=== PATIENT | male | born 1935 | race Caucasian/White ===

== ENCOUNTER → 2016-08-29 16:15 | Outpatient (CLI) | payer MEDICARE ==
[2014-12-23 15:36] VITALS: BMI 24.4
[~2016-08-29 16:15] MED LIST: ACTOS30 MG PO; CARAFATE1 G/10 ML PO; CEFTIN250 MG PO; CELEXA10 MG PO; CENTRUM COMPLE1 EACH PO; COLACE100 MG PO; COREG12.5 MG PO; COUMADIN5 MG PO; DIOVAN80 MG PO; FLOMAX0.4 MG PO; GLIMEPIRIDE4 MG PO; HUMULIN R100 U/ML SC; HYDROCODONE-APA1 TAB PO; INVOKANA300 MG PO; LANTUS SOL100 UNIT/1 SC; LASIX INJ40 MG/4 ML IV; LASIX20 MG PO; LASIX40 MG PO; MILK OF MAGNESI30 ML PO; MORPHINE SULFAT15 M4 PO; NEXIUM40 MG PO; PLAVIX75 MG PO; PRAVACHOL20 MG PO; PROTONIX40 MG PO; SALINE NASAL SP45 ML NS; SODIUM CL 0.91000 ML IV; XANAX0.25 MG PO
[2016-08-29 16:56] LABS: BASOPHILS 0.4 % (0-2); EOSINOPHILS 5.1 % (0-7); HEMATOCRIT 35.9 % (42.0-54.0); HEMOGLOBIN 11.3 g/dL (13.5-17.5); IMMATURE GRANULOCYTES 0.4 % (0-5); LYMPHOCYTES 25.6 % (15-50); MCH 30.1 pg (26.0-34.0); MCHC 31.5 g/dL (31.0-37.0); MCV 95.5 fL (80.0-100.0); MEAN PLATELET VOLUME 10.4 fL (7.4-10.4); MONOCYTES 8.7 % (2-11); NEUTROPHILS 59.8 % (40-80); PLATELET COUNT 147 10x3/uL (130-400); RBC 3.76 10x6/uL (4.20-6.10); RDW 13.4 % (11.5-14.5); WBC 5.5 10x3/uL (4.8-10.8)
[2016-08-29 17:21] LABS: ANION GAP 11.6 mmol/L (8-16); CALCIUM 9.1 mg/dL (8.5-10.1); CARBON DIOXIDE 28.3 mmol/L (21.0-32.0); CREATININE - SERUM 1.5 mg/dL (0.6-1.3); POTASSIUM - SERUM 5.9 mmol/L (3.5-5.1)
[2016-08-31 09:17] LABS: PSA - FREE 0.04 ng/mL; PSA - TOTAL 0.1 ng/mL (0.0-4.0)
== END | disposition home or self-care (01) ==
LOC: D.LAB 16:15
PROVIDERS: Urology
DX: R31.0 Gross hematuria (principal)

== ENCOUNTER → 2016-08-29 19:46 | Outpatient (CLI) | payer MEDICARE ==
[2014-12-23 15:36] VITALS: BMI 24.4
== END | disposition home or self-care (01) ==
LOC: D.LABREF 19:46
DX: R82.90 Unspecified abnormal findings in urine (principal)

== ENCOUNTER → 2016-09-16 15:57 | Outpatient (CLI) | payer MEDICARE ==
[2014-12-23 15:36] VITALS: BMI 24.4
== END | disposition home or self-care (01) ==
LOC: D.CT 09-02 15:00
DX: R82.8 Abnormal findings on cytological and histological examination of urine (principal)

== ENCOUNTER → 2016-09-30 20:45 | Outpatient (CLI) | payer MEDICARE ==
[2014-12-23 15:36] VITALS: BMI 24.4
[2016-09-30 21:12] LABS: APPEARANCE CLEAR (CLEAR); BILIRUBIN NEGATIVE (NEGATIVE); COLOR YELLOW (YELLOW); GLUCOSE NEGATIVE (NEGATIVE); KETONE NEGATIVE (NEGATIVE); LEUKOCYTE ESTERASE NEGATIVE (NEGATIVE); NITRITE NEGATIVE (NEGATIVE); PROTEIN NEGATIVE (NEGATIVE); SPECIFIC GRAVITY 1.015 (1.005-1.020); UROBILINOGEN NORMAL (NORMAL)
[2016-09-30 21:13] LABS: WHITE CELLS - URINE 0-5 /hpf (0-5)
[2016-09-30 21:14] LABS: BACTERIA FEW /hpf (NONE SEEN)
== END | disposition home or self-care (01) ==
LOC: D.LABREF 20:45
PROVIDERS: Urology
DX: N39.0 Urinary tract infection, site not specified (principal)

== ENCOUNTER 2016-12-16 11:30 | Emergency (ER) | payer MEDICARE ==
[2014-12-23 15:36] VITALS: BMI 24.4
[2016-12-16 12:18] LABS: BASOPHILS 0.1 % (0-2); EOSINOPHILS 3.8 % (0-7); HEMATOCRIT 36.9 % (42.0-54.0); HEMOGLOBIN 11.8 g/dL (13.5-17.5); IMMATURE GRANULOCYTES 0.3 % (0-5); LYMPHOCYTES 15.1 % (15-50); MCH 29.7 pg (26.0-34.0); MCV 92.9 fL (80.0-100.0); MEAN PLATELET VOLUME 10.2 fL (7.4-10.4); MONOCYTES 6.4 % (2-11); NEUTROPHILS 74.3 % (40-80); PLATELET COUNT 166 10x3/uL (130-400); RBC 3.97 10x6/uL (4.20-6.10); RDW 14.1 % (11.5-14.5); WBC 7.3 10x3/uL (4.8-10.8)
[2016-12-16 12:36] LABS: ALBUMIN 3.7 g/dL (3.4-5.0); ANION GAP 10.6 mmol/L (8-16); BILIRUBIN - TOTAL 0.54 mg/dL (0.2-1.3); CALCIUM 8.9 mg/dL (8.5-10.1); CARBON DIOXIDE 31.3 mmol/L (21.0-32.0); CREATININE - SERUM 1.7 mg/dL (0.6-1.3); POTASSIUM - SERUM 4.9 mmol/L (3.5-5.1); PROTEIN - SERUM 6.7 g/dL (6.4-8.2)
[2016-12-16 12:46] LABS: APPEARANCE CLOUDY (CLEAR); COLOR RED BROWN (YELLOW); GLUCOSE NEGATIVE (NEGATIVE); KETONE NEGATIVE (NEGATIVE); LEUKOCYTE ESTERASE TRACE (NEGATIVE); NITRITE NEGATIVE (NEGATIVE); PROTEIN 3+ mg/dL (NEGATIVE); SPECIFIC GRAVITY 1.015 (1.005-1.020); UROBILINOGEN NORMAL (NORMAL)
[2016-12-16 12:47] LABS: BILIRUBIN NEGATIVE (NEGATIVE)
[2016-12-16 12:48] LABS: BACTERIA FEW /hpf (NONE SEEN); EPITHELIAL CELLS 0-5 /hpf (0-5); RED CELLS - URINE >50 /hpf (0-5); WHITE CELLS - URINE 0-5 /hpf (0-5)
[2016-12-16 12:50] LABS: AMORPHOUS SEDIMENT >1+ /lpf (NONE SEEN); MUCUS <1+ /lpf (NONE SEEN)
== END 2016-12-16 13:35 | disposition home or self-care (01) ==
LOC: D.ER 11:30
PROVIDERS: Emergency Medicine
DX: R31.9 Hematuria, unspecified (principal); I50.9 Heart failure, unspecified; I10 Essential (primary) hypertension; E11.9 Type 2 diabetes mellitus without complications